=== PATIENT | female | born 1965 | race Caucasian/White ===

== ENCOUNTER 2017-03-26 12:28 | Emergency (ER) | payer OTHER ==
[2017-03-26 12:34] VITALS: BP 127/64
--- NOTE | 2017-03-26 12:35 | UC ---
Progress - Progress Note Progress Note: c/o 1/2 hour of jaw pain left and pain and tingling---Ekg ordered---cardiac Cath 2012 with out intervention
--- NOTE | 2017-03-26 13:11 | UC ---
UC General HPI - HPI Summary HPI Summary: The patient comes in today for: 1. Pain and numbness of the left jaw, pain in the left neck and shoulder without numbness, numbness of the hand, and tingling in the foot. Onset: 1 hour ago. Palliative/provocative: Nothing makes it better or worse. Quality: Tingling Region: Left face, left hand, and left foot. Severity: 4/10 Time: Constant. Associated symptoms: Previous episodes: None. Heaviness of arms/legs: NOne. * - History of Current Complaint Chief Complaint: UCUpperExtremity Stated Complaint: jaw pain hand numbness Time Seen by Provider: 03/26/17 13:02 Hx Obtained From: Patient, Family/Churn Driller - Allergy/Home Medications Allergies/Adverse Reactions: Allergies Allergy/AdvReac Type Severity Reaction Status Date / Time No Known Allergies Allergy Verified 03/23/13 07:26 Home Medications: Home Medications Insulin Lispro [Humalog] 100 unit SC 03/26/17 [History] PMH/Surg Hx/FS Hx/Imm Hx Previously Healthy: No - Gastroparesis, Endocrine History: Diabetes, Thyroid Disease - Surgical History Surgical History: Yes Surgery Procedure, Year, and Place: 2 , ANTRECTOMY, CARPAL TUNNEL - Family History Known Family History: Positive: Diabetes Negative: Hypertension - Social History Occupation: Employed Full-time Alcohol Use: Weekly Substance Use Type: None Smoking Status (MU): Never Smoked Tobacco Review of Systems Constitutional: Negative Skin: Negative Eyes: Negative ENT: Negative Respiratory: Negative Cardiovascular: Negative Gastrointestinal: Negative Genitourinary: Negative All Other Systems Reviewed And Are Negative: Yes Physical Exam Triage Information Reviewed: Yes Appearance: Well-Appearing, No Pain Distress, Well-Nourished Vital Signs: Initial Vital Signs Temp 97.3 F 03/26/17 12:31 Pulse 63 03/26/17 12:31 Resp 18 03/26/17 12:31 BP 127/64 03/26/17 12:31 Pulse Ox 100 03/26/17 12:31 Vital Signs Reviewed: Yes Eyes: Positive: Conjunctiva Clear ENT: Positive: Hearing grossly normal. Negative: Pharyngeal erythema, Nasal congestion, Nasal drainage, TM bulging, TM dull, TM red, Tonsillar swelling, Tonsillar exudate Dental: Negative: Gross Decay/Caries @, Dental Fracture @ Neck: Positive: Supple, Nontender, No Lymphadenopathy. Negative: Nuchal Rigidity Respiratory: Positive: Lungs clear, No respiratory distress, No accessory muscle use. Negative: Crackles, Wheezing Cardiovascular: Positive: RRR, No Murmur Abdomen Description: Positive: Nontender, No Organomegaly, Soft. Negative: Distended, Guarding Musculoskeletal: Positive: Strength Intact, ROM Intact, No Edema Neurological: Positive: Alert, Muscle Tone Normal, Other: - Neurologic exam: Inspection: no fasciculations. Cranial nerves (I-XII): intact Muscular tone: Reflexes: Biceps: 1+/2 x 2 Triceps: 1+/2 x 2 Brachioradialis: 2+/2 x 2 Patellar: 2+/2 x 2 Coordination: Upper extremity: Alternating patting of thighs, alternating fingertips to thumb, index finger tip to nose-- all normal. Lower extremity: Heel along nieves--normal. Strength: Upper extremity: appropriate for age and symmetrical Lower extremity: appropriate for age and symmetrical Gait: Regular: Normal. Heel to toe: Normal. Rhomberg: Normal. Sensation: No complaint of numbness. Psychological: Positive: Normal Response To Family, Age Appropriate Behavior, Consolable Skin: Negative: rashes, breakdown Course/Dx - Course Course Of Treatment: Patient told that her persisting numbness may be due to a mild stroke or TIA--suggest she go to the ER to which she and her agree , but want to go by private car. - Differential Dx - Multi-Symptom Provider Diagnoses: Left-sided numbness. Discharge - Discharge Plan Condition: Stable Disposition: HOME Additional Instructions: Please go directly to the [facility] ER.
== END 2017-03-26 13:38 | disposition left against medical advice (07) ==
LOC: UCEAST 12:28
DX: E11.9 Type 2 diabetes mellitus without complications (principal); Z79.4 Long term (current) use of insulin; E07.9 Disorder of thyroid, unspecified; R20.0 Anesthesia of skin
CPT/HCPCS: 93005; 99212; G0463

== ENCOUNTER 2017-03-26 14:27 | Observation (INO) | payer OTHER ==
[2017-03-26 15:49] LABS: Hematocrit 36 % (35-47); Hemoglobin 11.7 g/dl (12.0-16.0); Mean Corpuscular HGB Conc 33 g/dl (31-36); Mean Corpuscular Hemoglobin 29 pg (27-31); Mean Corpuscular Volume 87 fL (80-97); Mean Platelet Volume 8 um3 (7.4-10.4); Red Blood Count 4.12 10^6/ul (4.0-5.4); Red Cell Distribution Width 14 % (10.5-15); White Blood Count 7.8 10^3/ul (3.5-10.8)
--- NOTE | 2017-03-26 15:56 | RAD ---
INDICATION: Jaw pain COMPARISON: CT of the chest dated January 12, 2010 TECHNIQUE: Single AP portable view of the chest was obtained. FINDINGS: Image quality is compromised due to the relative inferiority of a portable chest x-ray. The heart and mediastinum exhibit normal size and contour. The lungs are grossly clear. There is no evidence of a large pleural effusion. Visualized bones are normal for the patient's age. The gas-filled left hemicolon measures just under 6 cm in diameter. IMPRESSION: 1. No radiographic evidence for acute cardiopulmonary abnormality on this portable chest x-ray. 2. Incidentally noted is the gas-filled colon measuring just under 6 cm in diameter. Please correlate to any gastrointestinal symptoms and/or constipation.
[2017-03-26 16:04] LABS: Albumin 4.2 g/dL (3.2-5.2); BUN/Creatinine Ratio 23.2 (8-20); EGFR African American 115.4 (>60); EGFR Non-African American 89.7 (>60); Globulin 2.6 g/dL (2-4); Potassium 3.6 mmol/L (3.5-5.0); Total Bilirubin 0.5 mg/dL (0.2-1.0); Total Protein 6.8 g/dL (6.4-8.9)
--- NOTE | 2017-03-26 16:06 | RAD ---
INDICATION: Left facial and upper extremity numbness and tingling COMPARISON: None. TECHNIQUE: Contiguous axial sections of the brain were obtained from the skull base to the vertex without contrast. FINDINGS: The ventricles, cisterns and sulci are within normal limits. The garcia-white matter differentiation is adequately maintained and there is no sulcal effacement. No significant focal abnormality or mass effect is present. There is no evidence for intracranial hemorrhage. No significant focal osseous abnormality is present. The visualized portion of the paranasal sinuses and mastoid air cells appear clear. IMPRESSION: Normal CT of the brain.
[2017-03-26] MEDS ORDERED: Acetaminophen TAB* 325 MG PO PRN (16:32)
[2017-03-26] MEDS ORDERED: Morphine INJ* 2 MG/ML 1 ML SYRINGE IV PRN (16:32)
[2017-03-26] MEDS ORDERED: Temazepam CAP* 15 MG PO PRN (16:32)
[2017-03-26] MEDS ORDERED: Dextrose 50% Syringe 50 ML* 25 GM/50 ML SYRINGE IV PUSH PRN (16:35)
[2017-03-26] MEDS: Aspirin TAB* 325 MG PO SCH (18:54)
[2017-03-26] MEDS ORDERED: Insulin LISPRO* 1 UNITS UNIT SUBCUT SCH (21:00)
[2017-03-26] MEDS: Heparin VIAL(*) 5000 UNITS/ML VIAL (FIVE THOUSAND) SUBCUT SCH (22:08)
--- NOTE | 2017-03-26 22:39 | ED ---
Francisco Doshi Thomas, scribed for Frank Harris MD on 03/26/17 at 1613 . Neurological HPI - HPI Summary HPI Summary: The pt is a 51 y/o female referred from [facility] presenting to [facility] ED c/o facial numbness. The patient reports L jaw, head, neck and shoulder pain this morning. The pt reports tingling in her L hand and L foot this morning. She also noted mild CP with a quality of tightness this morning. All Sx lasted 30 minutes and are resolved except tingling in her L face "only if she notices it." Sx alleviated by spontaneous resolution. In the past few days her blood sugar levels have been in the 180s and 190s. PMHx: IDDM. - History of Current Complaint Chief Complaint: EDGeneral Stated Complaint: PAIN IN JAW/NECK Time Seen by Provider: 03/26/17 14:56 Hx Obtained From: Patient Onset/Duration: Sudden Onset, Resolved Timing: Sudden Onset Onset Severity: Moderate Current Severity: Mild Neurological Deficit Location: Facial - numbness, LUE - L hand tingling ( resolved), LLE - L foot tingling (resolved) Pain Intensity: 6 Pain Scale Used: 0-10 Numeric Character: Numbness/Tingling - facial, L hand (tingling - resolved), L foot ( tingling - resolved) Episode Lasting: Seconds/Minutes - 30 minutes Syncope Context: Loss of Consciousness: No Aggravating: Nothing Alleviating: Spontanious Resolution Associated Signs and Symptoms: Positive: Chest Pain - mild, resolved, "tightness " - Allergy/Home Medications Allergies/Adverse Reactions: Allergies Allergy/AdvReac Type Severity Reaction Status Date / Time No Known Allergies Allergy Verified 03/23/13 07:26 PMH/Surg Hx/FS Hx/Imm Hx Endocrine/Hematology History: Reports: Hx Diabetes - Type 1, Hx Thyroid Disease - Hashimotos disease, Hx Anemia - HISTORY OF Cardiovascular History: Denies: Hx Hypertension, Hx Pacemaker/ICD Respiratory History: Denies: Hx Asthma, Hx Chronic Obstructive Pulmonary Disease (COPD) GI History: Reports: Other GI Disorders - GASTROPORESIS AND BEING TESTED FOR CELIAC DISEASE Denies: Hx Ulcer Musculoskeletal History: Denies: Hx Rheumatoid Arthritis, Hx Osteoporosis Sensory History: Reports: Hx Contacts or Glasses - GLASSES Denies: Hx Hearing Aid Opthamlomology History: Reports: Hx Contacts or Glasses - GLASSES Neurological History: Reports: Hx Headaches - GET HEADACHES EVERY DAY USES IBUPROFEN Psychiatric History: Denies: Hx Panic Disorder - Cancer History Cancer Type, Location and Year: Stomach cancer, antrectomy 2009 Hx Chemotherapy: No Hx Radiation Therapy: No - Surgical History Surgery Procedure, Year, and Place: 2 , ANTRECTOMY, CARPAL TUNNEL Hx Anesthesia Reactions: No Infectious Disease History: No Infectious Disease History: Reports: Hx Human Immunodeficiency Virus (HIV) - 2008 Denies: Hx Hepatitis, Traveled Outside the [place] in Last 30 Days - Family History Known Family History: Positive: Diabetes Negative: Hypertension - Social History Alcohol Use: Weekly Substance Use Type: Reports: None Smoking Status (MU): Never Smoked Tobacco Review of Systems Negative: Fever, Chills Negative: Erythema Negative: Sore Throat Positive: Chest Pain - tightness, mild - resolved Negative: Shortness Of Breath, Cough Negative: Abdominal Pain, Vomiting, Nausea Negative: dysuria, hematuria Positive: Arthralgia - POS: L jaw pain, L neck pain, L shoulder pain - all resolved. Negative: Myalgia, Edema Negative: Rash Neurological: Other - NEG: dizziness Positive: Numbness - L facial numbness; Tingling - L hand and L foot (resolved) All Other Systems Reviewed And Are Negative: Yes Physical Exam - Summary Physical Exam Summary: Constitutional: Well-developed, Well-nourished, Alert. (-) Distressed Skin: Warm, Dry HENT: Eyes: Conjunctiva normal Neck: Musculoskeletal ROM normal neck. (-) JVD, (-) Stridor, (-) Tracheal deviation Cardio: Rhythm regular, rate normal, Heart sounds normal; Intact distal pulses; The pedal pulses are 2+ and symmetric. Radial pulses are 2+ and symmetric. (-) Murmur Pulmonary/Chest wall: Effort normal. (-) Respiratory distress, (-) Wheezes, (-) Rales Abd: Soft. (-) Tenderness, (-) Distension, (-) Guarding, (-) Rebound Musculoskeletal: (-) Edema Lymph: (-) Cervical adenopathy Neuro: Sensation symmetric bilaterally. Normal. Alert, Oriented x3, Strength normal, Cranial nerves II-XII are grossly intact. (-) Dysmetria, (-) Nystagmus, (-) Ataxia by finger to nose testing, (-) Sensory deficit. Psych: Mood and affect Normal Vital Signs On Initial Exam: Initial Vitals Temp Pulse Resp BP Pulse Ox 99.0 F 73 20 103/60 99 03/26/17 14:47 03/26/17 14:47 03/26/17 14:47 03/26/17 14:47 03/26/17 14:47 Diagnostics - Vital Signs Vital Signs Temp Pulse Resp BP Pulse Ox 03/26/17 15:05 68 98 03/26/17 15:04 99 F 70 20 108/64 100 03/26/17 15:03 108/64 03/26/17 14:47 99.0 F 73 20 103/60 99 - Laboratory Result Diagrams: 03/26/17 15:41 03/26/17 15:41 Lab Statement: Any lab studies that have been ordered have been reviewed, and results considered in the medical decision making process. - Radiology CXR Radiology Interpretation Completed By: Radiologist - 1. No radiographic evidence for acute cardiopulmonary abnormality on this portable chest x-ray. 2. Incidentally noted is the gas-filled colon measuring just under 6 cm in diameter. Please correlate to any gastrointestinal symptoms and/or constipation. - CT CT Brain CT Interpretation: No Acute Changes - Normal CT of the brain CT Interpretation Completed By: Radiologist - EKG 1 Cardiac Rate: NL - 65 bpm EKG Rhythm: Sinus Rhythm EKG Interpretation: No STEMI. No change. 1503. NIH Scale - NIH Scale Level of Consciousness: Alert/Keenly Responsive Ask Patient the Month and His/Her Age: Both Correct Ask Pt to Open/Close Eyes and Wire Twisting Machine Operator/Release Non-Paretic Hand: Both Correctly Best Gaze (Only Horizontal Eye Movement): Normal Visual Field Testing: No Visual Loss Facial Paresis-Pt to Smile & Close Eyes or Grimace Symmetry: Normal/Symmetrical Motor Function - Right Arm: No Drift-Holds 10 Seconds Motor Function - Left Arm: No Drift-Holds 10 Seconds Motor Function - Right Leg: No Drift-Holds 10 Seconds Motor Function - Left Leg: No Drift-Holds 10 Seconds Limb Ataxia-Must be out of Proportion to Weakness Present: Absent Sensory (Use Pinprick to Test Arms/Legs/Trunk/Face): Normal Best Language (Describe Picture, Name Items): No Aphasia Dysarthria (Read Several Words): Normal Extinction and Inattention: No Abnormality Total Score: 0 Re-Evaluation - Re-Evaluation First Eval Re-Evaluation Time: 16:40 Change: Unchanged - Updated on results. Discussed admission Course/Dx - Course Assessment/Plan: Pt is a 51 y/o female referred from [facility] presenting to [facility] ED c /o facial numbness. The patient reports L jaw, head, neck and shoulder pain as well as tingling in her L hand and L foot this morning. She also noted mild CP with a quality of tightness this morning. All Sx lasted 30 minutes and are resolved except tingling in her L face "only if she notices it." Sx alleviated by spontaneous resolution. CXR, Brain CT and EKG reveal no acute findings. Troponin is 0.00. Discussed care of patient with Dr. Betts who reports she is more concerned about CAD than CVA or TIA. Discussed care of patient with Dr. Robert who accepts patient for admission. Stress tests are not available on weekends. Pt will be admitted to hospitalist services with Dx of unspecified chest pain and paresthesia. She understands and agrees. - Differential Dx Differential Diagnoses Neuro: Positive: Cerebrovascular Accident, Transient Ischemic Attack, Other - Angina, Neuropathy, Complex Migraine - Diagnoses Provider Diagnoses: Chest pain, unspecified, Paresthesia - Physician Notifications Discussed Care Of Patient With: Michelle Betts Time Discussed With Above Provider: 16:20 Instructed by Provider To: Other - He has more concern for CAD than CVA or TIA. Discussed care of patient with Dr. Jenifer Robert at 1623 who accepts pt for admission. Discharge - Discharge Plan Condition: Fair Disposition: ADMITTED TO [facility] documentation as recorded by the Francisco phillips Thomas accurately reflects the service I personally performed and the decisions made by me, Frank Harris MD.
--- NOTE | 2017-03-26 23:25 | HP ---
CC: JAYANT Berkowitz; Dr. Hsu; Dr. Betts * HISTORY AND PHYSICAL: DATE OF ADMISSION: 03/26/17 PRIMARY CARE PROVIDER: JAYANT Berkowitz CHIEF COMPLAINT: Left-sided headache, left-sided jaw pain, and left shoulder pain as well as tingling in left fingertips and left foot. HISTORY OF PRESENT ILLNESS: Alaina Figueroa is a 51-year-old female with a history of migraines for which she usually takes ibuprofen who presented today, sent from [facility] after she was evaluated there for an episode as above, described left-sided tingling, headache, and pain that lasted several minutes. The patient had no history of shortness of breath with it. The pain resolved spontaneously. She stated that the headache felt like her migraine headache, but this time it was unilateral. She had no visual problems and no aura. She usually does not get aura with her migraine headaches. She had a similar episode of jaw pain when she was sitting and watching TV a couple of days earlier. The patient stated that today she was in the car when it happened. Neurologically, the patient had been intact. Her troponin is negative. Her EKG is unremarkable. The patient is going to be placed on overnight observation with a diagnosis of chest pain. PAST MEDICAL HISTORY: 1. History of coronary artery disease. The patient had an abnormal stress test in 2012 followed up by cardiac catheterization, which showed "relatively normal coronary artery disease with the exception of a small branch of the circumflex that appeared to be filling in a retrograde fashion from a low-lying obtuse marginal branch. Given this finding, this is a very small vessel at best and clearly not a vessel that would be approached by any form of intervention other than medical management." That was an excerpt from Dr. Hsu's letter sent to the patient's primary care provider in 2012. At that point, the patient was placed on beta- blockers and followed up with Dr. Hsu outpatient once, but did not do it since. Interestingly enough, the patient herself does not remember that she had a cardiac catheterization and states that her cardiac stress test performed in 2012 was within normal limits. 2. History of partial gastrectomy for a carcinoid tumor that was a definitive treatment. 3. History of Gerald's thyroiditis with subsequent development of hypothyroidism. 4. History of diabetes type 1, insulin dependent, currently on pump. 5. History of status post right carpal tunnel release. 6. History of left-sided lateral epicondylitis recently. MEDICATIONS: Include: 1. Insulin via pump. 2. Levothyroxine 75 mcg daily. 3. Rizatriptan 5 mg tablets on a p.r.n. basis for headache. 4. Flexeril 10 mg daily on a p.r.n. basis. 5. Ibuprofen 200 mg on a p.r.n. basis. ALLERGIES: No known drug allergies. FAMILY HISTORY: Positive for mother who at the age of 66 after her coronary artery bypass grafting. Father in his 70s as a consequence of rheumatic heart disease. SOCIAL HISTORY: The patient denies any tobacco, alcohol, or drug use. She works at the [employer]. She lives with her , who is her surrogate. REVIEW OF SYSTEMS: Please see history of present illness. The patient stated that she usually gets tired when she walks a flight of stairs and that had been not out of the ordinary. She denies any pains or jaw pains associated with exercise. Her weight had been stable. All the remaining 14 systems were reviewed with the patient and were otherwise negative. PHYSICAL EXAMINATION GENERAL: The patient is a very pleasant 51-year-old female who is in no acute distress. Alert, awake, and oriented x3. VITAL SIGNS: Blood pressure of 122/73, heart rate of 75 and regular, respiratory rate 13, oxygen saturation 98% on room air, temperature of 99.0. HEENT: Head: Atraumatic, normocephalic. Eyes: Pupils equal, reactive to light and accommodation. Oropharynx clear. Mucosa moist. NECK: Supple. No JVD, no bruit bilaterally. RESPIRATORY: Clear to auscultation bilaterally. CARDIOVASCULAR: Regular rate and rhythm. No murmurs. ABDOMEN: Soft, nontender. Bowel sounds present in all 4 quadrants. EXTREMITIES: There is no edema. Pulses are +2 bilaterally. No clubbing or cyanosis. NEUROLOGIC EVALUATION: Speech clear. Cranial nerves II through XII grossly intact. Motor strength is 5/5 bilaterally. LABORATORY DATA AND DIAGNOSTIC STUDIES: Show white blood cell count of 7.8, hemoglobin of 11.7, hematocrit of 36, and platelets of 263. Sodium was 139, potassium 3.6, chloride 105, carbon dioxide 28, BUN 16, creatinine 0.69. Liver function tests were unremarkable. Glucose was 69. The patient's EKG showed normal sinus rhythm with heart rate of 65 beats per minute with nonspecific ST changes in III and aVF that is consistent with prior EKG from 2013. Brain CT, impression: "Normal CT of the brain." Portable chest x-ray, impression: "No radiographic evidence of acute cardiopulmonary abnormality of this portable chest x-ray. Incidentally noted gas filled colon measuring 6 cm in diameter. Please correlate to any gastrointestinal symptoms and/or constipation." ASSESSMENT AND PLAN: In regards to the patient's symptoms of jaw pain that it is left-sided as well as tingling that was noted in left fingertips and left foot. At this point, the differential includes either cardiac symptoms or YOUTH MINISTRY DIRECTOR symptoms. The patient could have transient ischemic attack, but it is also possible that she had symptoms of angina. It would be unusual if she had tingling in her left leg due to angina though. The patient is going to be observed on telemetry monitored bed with followup troponins. A transthoracic echocardiogram is going to be obtained in the morning with bubble study. The patient also is going to be placed on neuro checks every 2 hours and aspirin is going to be administered. It is also possible that the patient had atypical migraine. Currently, her headache resolved. A CT of the brain is unremarkable. I will also obtain carotid Dopplers to evaluate it further. In regards to the patient's diabetes type 1, we will allow the patient to use her insulin pump during the hospital stay. In regards to the patient's hypothyroidism, Synthroid is going to be continued at the outpatient doses. For DVT prophylaxis, the patient is low risk and ambulation is going to be encouraged. TIME SPENT: Approximately 65 minutes were spent on admission of this patient, more than half that time was spent [id number] with the patient during the interview and physical exam. [id number]/[id number] #: [id number] HEATHER
[2017-03-27] MEDS: Heparin VIAL(*) 5000 UNITS/ML VIAL (FIVE THOUSAND) SUBCUT SCH (05:50)
[2017-03-27] MEDS ORDERED: Levothyroxine TAB* 75 MCG TAB PO SCH (06:00)
[2017-03-27] MEDS ORDERED: Levothyroxine TAB* 25 MCG TAB PO SCH (06:00)
[2017-03-27] MEDS: Aspirin TAB* 325 MG PO SCH (09:05)
--- NOTE | 2017-03-27 13:11 | CONS ---
BRIEF CONSULTATION REPORT: DATE OF CONSULT: 03/27/17 REQUESTING PROVIDER: Jenifer Robert MD. HISTORY OF PRESENT ILLNESS: Alaina Figueroa is a 51-year-old woman with a history of type 1 diabetes, as well as chronic headaches and neck pain whom I recently saw as an outpatient on 03/14/17 for consultation regarding her chronic headaches and neck pain. Yesterday, she was riding in the car with her when she developed left jaw pain, as well as tingling in the jaw. She indicates that she also had some pain in that area, a day or two prior and thought it was related to a tooth. She then developed a severe pain in the left side of her head which went down her neck. She also developed tingling in her hand on the left and her foot, but specifically indicates that she did not have symptoms in the arm or the leg themselves. She denies any weakness, speech changes, vision changes, vertigo with this. Her headaches are typically posterior and radiate to the frontal regions and she has not really experienced a unilateral headache like this in the past. She denies any associated nausea or vomiting with his headache. She is always sensitive to light and sound because of her chronic headaches but did not notice this was any worse with this particular headache. She estimates that the symptoms lasted an hour or two and specifically that the tingling in her hand and her foot probably lasted about an hour. I did hear about the patient briefly from the emergency department yesterday evening and was told that she had chest pain associated with these symptoms, but today she indicates that she just had some tightness in her chest and did not have any significant pain in her chest. She also has a history of anxiety which we discussed during the outpatient visit recently and she has had some cognitive difficulties including memory problems and trouble getting her words out at times. I thought that this might be related to her anxiety and we talked about some possible changes that could be made to her outpatient medication regimen, but nothing has been done as of yet. We had talked about getting an MRI scan of the brain if her cognitive problems did not improve after better treatment of her anxiety. PAST MEDICAL HISTORY: 1. Type 1 diabetes. 2. History of carcinoid with partial gastrectomy. 3. Hypothyroidism. 4. Possible mild coronary artery disease. 5. Anxiety. 6. Chronic headaches and neck pain. HOME MEDICATIONS: 1. NovoLog insulin. 2. Ibuprofen as needed. 3. Levothyroxine 75 mcg daily. 4. Flexeril p.r.n. 5. Rizatriptan p.r.n. ALLERGIES: No known drug allergies. FAMILY HISTORY: Mother with coronary artery disease. Father with rheumatic heart disease. SOCIAL HISTORY: She works at [employer] and lives with her . Denies any significant tobacco, alcohol or drug use. REVIEW OF SYSTEMS: She denies any head or neck trauma prior to the onset of these symptoms. She denies any pain with chewing. She has visited the dentist recently and had no issues with her teeth that were noted. PHYSICAL EXAM: Vital Signs: Temperature 97.7, blood pressure 101/64, heart rate 73, oxygen saturation 99% on room air. On general examination, she is sitting up in the chair in no acute distress. She is fully awake and alert and oriented x3. Heart is in a regular rate and rhythm with no murmurs, rubs or gallops. Lungs are clear to auscultation bilaterally. She has multiple dental fillings but no obvious cavities. On neurologic exam, her speech is fluent without dysarthria or aphasia. On cranial nerve testing, the pupils are equal, round and reactive from 3 to 2 mm bilaterally. Versions are full without nystagmus. Doshi are full bilaterally. Facial sensation is full and symmetric. The tongue protrudes in the midline and the palate elevates symmetrically. On motor testing, she has no pronator drift. There is full strength in the upper and lower extremities. Sensation was not tested. Finger- to-nose is intact without ataxia. DTRs are 1+ in the upper extremities, 2+ in the knees. Romberg is negative. DIAGNOSTIC STUDIES/LAB DATA: I reviewed a noncontrast brain CT which was unremarkable. Her laboratory workup included a CMP as well as troponins which were largely unremarkable aside from a glucose of 69 when she arrived in the ED yesterday. CBC was relatively unremarkable as well. IMPRESSION: Alaina Figueroa is a 51-year-old woman with a history of chronic headaches and neck pain who presented with an episode of unilateral head pain which radiated into the neck and was associated with left jaw pain as well as tingling in the left face, hand and foot. This episode sounds like it self resolved. She did not have any other neurologic abnormalities with this episode. Transient ischemic attack is unlikely given that she primarily had pain and has such disparate areas of tingling that would be difficult ascribe to one brain region. 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 These were always generalized tonic-clonic seizures, never any focality to them. Again, it would be unusual for a seizure to cause these symptoms given the noncontiguous tingling that affected face, hand and foot. As an outpatient, we had discussed obtaining MRI of the brain if there were any further symptoms and I think that at this point this is warranted. I will order MRI of the brain for her as an outpatient and my office will take care of that. She should have a followup set up with me already and I do not think that we need to move that up at this point, but results of the MRI will somewhat dictate that. [id number]/[facility] #: [id number] HEATHER
[2017-03-27 14:34] VITALS: BP 92/61
--- NOTE | 2017-03-28 04:58 | DS ---
CC: JAYANT Berkowitz; Dr. Betts; Dr. Hsu * DISCHARGE SUMMARY: DATE OF ADMISSION: 03/26/17 DATE OF DISCHARGE: 03/27/17 PRIMARY CARE PROVIDER: JAYANT Berkowitz. DISCHARGE DIAGNOSES: 1. A transient episode of left-sided jaw pain. 2. Left-sided headache. 3. Left shoulder pain. 4. Left arm and leg paresthesias, resolved by the time of admission, with broad differential that includes possibility of seizure maybe from hypoglycemia. 5. Possibility of transient ischemic attack. 6. Possibility of coronary artery disease or anxiety. During the patient's hospital stay, we were unable to definitively rule out any of those possibilities. SECONDARY DIAGNOSES: 1. History of migraine headaches. 2. History of carcinoid tumor, status post post partial gastrectomy due to that. 3. History of coronary artery disease. The patient herself stated that she never had a cardiac catheterization. Although from medical records, the patient had a cardiac catheterization performed by Dr. Hsu and for further details, please see history and physical dictated by myself on 03/26/17. 3. History of Gerald's thyroiditis and now hypothyroidism. 4. Diabetes type 1, insulin dependent, on pump. 5. History of left lateral epicondylitis. MEDICATIONS AT DISCHARGE: Include: 1. Aspirin 81 mg daily. 2. Ibuprofen on a p.r.n. basis. 3. Insulin lispro sliding scale as well as insulin via pump. 4. Levothyroxine 75 mcg daily. CONSULTATION DURING THE HOSPITAL STAY: Include Dr. Michelle Betts from Neurology. LABORATORY DATA AND STUDIES PERFORMED DURING THE HOSPITAL STAY: Included troponins that were 0 throughout her hospital stay. Please note that studies that were pending at the time of this dictation include a transthoracic echocardiogram that the patient requested to have done as outpatient since she wishes to go home prior to completion of the study. The patient also plans to have an MRI as outpatient set up by Dr. Betts's office for followup. The patient is also recommended to follow up with Dr. Hsu for an outpatient cardiac stress test. HOSPITALIZATION COURSE: Alaina Figueroa is a 51-year-old female with history of carcinoid tumor, status post partial transection of the stomach for definitive treatment as well as possibility of coronary artery disease, although rather vague. The patient herself does not remember that she had cardiac catheterization in 2012. the patient's also does not recall that. Nevertheless, I checked in both Dr. Hsu's office medical records as well as in the patient's medical records from the hospital and both of those sources indicate that the patient had cardiac catheterization in 2012 that showed possibility of small artery occlusion. The patient apparently did not follow up with Dr. Hsu after the year 2012. The patient was admitted to the hospital complaining of a brief episode of left - sided headache associated with tingling in the left arm and left leg and pain in the left shoulder and left side of the jaw. Her initial workup was unremarkable. It was also noted that the patient was mildly hypoglycemic on presentation at . The episode of the tingling and the pain occurred when she was riding with her in a car. It was not exertional. The patient was placed on overnight observation with neuro checks and her symptoms did not recur. She did not have any chest pain or shortness of breath throughout her hospital stay and her troponins continued to be negative. Her telemetry was also unremarkable. At this point, the differential is broad and includes the possibility of coronary artery disease, but unfortunately during the weekend, I am unable to get a cardiac stress test on this patient. I recommend a cardiac stress test as outpatient. Specifically, the patient does not want to wait any longer as she wants to go home. I also recommended a transthoracic echocardiogram and carotid Doppler studies. For both of the studies, the patient wished not to wait and she wanted to have that done as outpatient. Dr. Betts saw the patient in consultation, and due to ongoing problems with the above mentioned as well as history of problems with memory issues, Dr. Betts recommended an outpatient MRI and her office is going to set it up for the patient after discharge. At this point, the patient is requested to be discharged home without further workup. With recommendations as mentioned above, she is going to be discharged home. I will place her on baby aspirin at discharge for the time being. PHYSICAL EXAMINATION: At the time of discharge showed blood pressure 121/64, heart rate of 73 and regular, respiratory rate 16, oxygen saturation 99% on room air, temperature 97.7. General: The patient is a very pleasant 51-year- old female who is in no acute distress. Alert, awake, and oriented x3. HEENT: Head is atraumatic, normocephalic. Eyes: Pupils are equal and reactive to light and accommodation. Oropharynx clear. Mucosa moist. Neck: Supple. No JVD. No bruits bilaterally. Cardiovascular: Regular rate and rhythm. No murmur. Respiratory: Clear to auscultation bilaterally. Abdomen: Soft, nontender. Bowel sounds present in all 4 quadrants. Extremities: There is no edema. Pulses are +2 bilaterally. No clubbing or cyanosis. Neuro Evaluation: Speech is clear. Cranial nerves II through XII grossly intact. Motor strength is 5/5 bilaterally. Please note this is a short summary of the patient's hospital stay. Please refer to further medical records for details. [id number]/[facility] #: [id number] MTDD
== END 2017-03-27 14:05 | disposition home or self-care (01) ==
LOC: ED 14:27 → MEDTELE 16:32
PROVIDERS: ADMIT Internal Medicine; ATTEND Internal Medicine
DX: R68.84 Jaw pain (principal); R51 Headache; R07.9 Chest pain, unspecified; M25.512 Pain in left shoulder; R20.9 Unspecified disturbances of skin sensation; I25.10 Atherosclerotic heart disease of native coronary artery without angina pectoris; E03.9 Hypothyroidism, unspecified; E10.9 Type 1 diabetes mellitus without complications; Z79.4 Long term (current) use of insulin; Z96.41 Presence of insulin pump (external) (internal); Z79.82 Long term (current) use of aspirin; Z79.899 Other long term (current) drug therapy; Z85.028 Personal history of other malignant neoplasm of stomach
CPT/HCPCS: 36415; 70450; 71010; 80053; 83605; 84484; 85025; 93005; 96372; 99283; A9270-GY; G0378; J1644

== ENCOUNTER 2018-08-14 15:57 | Emergency (ER) | payer OTHER ==
[2018-08-14 16:52] VITALS: BP 135/79
--- NOTE | 2018-08-14 17:30 | UC ---
Neck Pain HPI - HPI Summary HPI Summary: Pt. is a 53 y.o female who presents to the ER for right sided neck pain x 1-2 weeks. Pt. states she noticed pain just below her right jawline that radiates into her face and head. No modifying factors. She did notice some right ear pressure today but denies any other URI symptoms. Pt. has a hx of TIA, amy , and DM 1. Takes a baby asa daily. Pt. otherwise denies unilateral numbness/ tingling or weakness. Symptoms are moderate in severity. NO current modifying factors. 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 Pain Intensity: 5 - Allergies/Home Medications Allergies/Adverse Reactions: Allergies Allergy/AdvReac Type Severity Reaction Status Date / Time No Known Allergies Allergy Verified 08/14/18 18:11 PMH/Surg Hx/FS Hx/Imm Hx Previously Healthy: Yes - Surgical History Surgical History: Yes Surgery Procedure, Year, and Place: 2 , ANTRECTOMY, CARPAL TUNNEL WRIST RIGHT - Family History Known Family History: Positive: Diabetes Negative: Hypertension - Social History Occupation: Employed Full-time Lives: With Family Alcohol Use: Weekly Substance Use Type: None Smoking Status (MU): Never Smoked Tobacco Review Of Systems Constitutional: Positive: Negative. Negative: Fever, Chills Skin: Positive: Negative Eyes: Positive: Negative. Negative: Photophobia, Blurred Vision, Diplopia ENT: Positive: Ear Ache Respiratory: Positive: Negative Cardiovascular: Positive: Negative Gastrointestinal: Positive: Negative Genitourinary: Positive: Negative Musculoskeletal: Positive: Other: - right side neck pain Neurological: Positive: Headache All Other Systems Reviewed And Are Negative: Yes Physical Exam Triage Information Reviewed: Yes Appearance: Well-Appearing - Patient sitting on bed in no acute distress. present. Vital Signs: Initial Vital Signs Temp 99.2 F 08/14/18 16:47 Pulse 74 08/14/18 16:47 Resp 16 08/14/18 16:47 BP 135/79 08/14/18 16:47 Pulse Ox 100 08/14/18 16:47 Vital Signs Reviewed: Yes Eyes: Positive: Conjunctiva Clear ENT: Positive: Pharynx normal, TMs normal. Negative: Pharyngeal erythema, Tonsillar swelling, Tonsillar exudate Dental Exam: Normal Neck: Positive: Supple, Other: - Pain on palpation to the right aspect of the neck without erythema, edema, induration, adenopathy.. Negative: Nuchal Rigidity Respiratory: Positive: Lungs clear, Normal breath sounds Cardiovascular: Positive: RRR, No Murmur Musculoskeletal Exam: Normal Neurological Exam: Normal Skin Exam: Normal Neck Pain Course/Dx - Course Course Of Treatment: Patient presenting to the urgent care with complaints of right-sided neck. The radiates into her face and head. No injury. Her exam is unremarkable. She is afebrile with stable vital signs. Given concerned with patient's history of TIA and possible pain coming from carotid dissection. Patient examined by Dr. Diaz as well and feels pt. should go the ER for further evaluation. Pt. and are agreeable with this and would like to go private vehicle. Advised pt. to go directly to ER for further evaluation. - Differential Dx/Diagnosis Provider Diagnoses: Neck pain Discharge - Sign-Out/Discharge Documenting (check all that apply): Patient Departure All imaging exams completed and their final reports reviewed: No Studies - Discharge Plan Condition: Stable Disposition: HOME-RECOMMEND TO ED Referrals: Waleska Ames NP [Primary Care Provider] - Additional Instructions: PLEASE GO TO THE ER FOR FURTHER EVALUATION OF YOUR NECK PAIN - Billing Disposition and Condition Condition: STABLE Disposition: Home-Recommend to ED
== END 2018-08-14 17:44 | disposition home health service (06) ==
LOC: UCEAST 15:57
DX: M54.2 Cervicalgia (principal); E10.9 Type 1 diabetes mellitus without complications; E06.3 Autoimmune thyroiditis; Z86.73 Personal history of transient ischemic attack (TIA), and cerebral infarction without residual deficits; Z79.82 Long term (current) use of aspirin
CPT/HCPCS: 99212; G0463

== ENCOUNTER 2018-08-14 18:00 | Emergency (ER) | payer OTHER ==
[2018-08-14 18:10] VITALS: BP 129/76
== END 2018-08-14 19:25 | disposition left against medical advice (07) ==
LOC: ED 18:00
DX: R51 Headache (principal); Z53.21 Procedure and treatment not carried out due to patient leaving prior to being seen by health care provider